=== PATIENT | female | born 1930 | race Caucasian/White ===

== ENCOUNTER → 2021-07-16 | Outpatient (CLI) | payer OTHER ==
[~2021-07-16] MED LIST: ALEVE220 M1 PO; ASPIRIN EC81 M1 PO; CIPRO250 M1 PO; ELIQUIS5 MG PO; HYDROCHLOROTHIA25 M1 PO; IMDUR 60 MG TAB60 M1 PO; INDERAL LA PO; ISORDIL 5MG TABL5 MG PO; KLOR-CON 1010 MEQ PO; KLOR-CON M2020 MEQ PO; LIDOCAINE5 GM TOP; LIPITOR 20 MG T20 M1 PO; LIPITOR40 MG PO; NITROGLYCERIN0.4 MG SUBLING; PLAVIX 75 MG TA75 M1 PO; POTASSIUM CHLORIDE PO; PROPRANOLOL 20M20 M1 PO; PROPRANOLOL 4040 M1 PO; SYSTANE 0.3-0.1 EACH OPHTHALMIC; VITAMIN D350000 UNIT PO
== END ==
LOC: SJCVCIMAG 07:37
PROVIDERS: ATTEND Internal Medicine
DX: I08.3 Combined rheumatic disorders of mitral, aortic and tricuspid valves (principal); E78.5 Hyperlipidemia, unspecified; I25.10 Atherosclerotic heart disease of native coronary artery without angina pectoris; I48.0 Paroxysmal atrial fibrillation; I27.20 Pulmonary hypertension, unspecified; I49.5 Sick sinus syndrome; I11.0 Hypertensive heart disease with heart failure; I50.32 Chronic diastolic (congestive) heart failure; I44.30 Unspecified atrioventricular block; Z95.0 Presence of cardiac pacemaker; Z95.5 Presence of coronary angioplasty implant and graft; Z79.899 Other long term (current) drug therapy; Z86.73 Personal history of transient ischemic attack (TIA), and cerebral infarction without residual deficits; Z88.0 Allergy status to penicillin; Z88.5 Allergy status to narcotic agent; Z88.8 Allergy status to other drugs, medicaments and biological substances; Z82.49 Family history of ischemic heart disease and other diseases of the circulatory system

== ENCOUNTER → 2021-07-23 | Outpatient (CLI) | payer OTHER ==
[~2021-07-23] VITALS: Ht 157.5 cm; Wt 62.6 kg
[2021-07-23 09:18] VITALS: BP 138/76
[2021-07-23 09:40] LABS: ABSOLUTE NEUTROPHILS 3.7 thou/uL (1.4-8.2); BASOPHILS 0.7 % (0.0-2.0); EOSINOPHILS 2.5 % (0.0-3.0); HEMATOCRIT 31.3 % (37.0-47.0); HEMOGLOBIN 10.4 gm/dL (12.0-15.0); LYMPHOCYTES 20.8 % (24.0-44.0); MCHC 33.3 g/dL (28.0-37.0); MCV 99.3 fL (80.0-100.0); MONOCYTES 8.6 % (1.0-8.0); PLATELET COUNT 183 thou/uL (150-400); POLYS 67.4 % (36.0-66.0); RBC 3.15 mil/uL (4.20-5.00); RDW 16.8 % (10.5-14.5); WBC 5.5 thou/uL (4.0-11.0)
[2021-07-23 09:48] LABS: CALCIUM 8.9 mg/dL (8.5-10.1); POTASSIUM 4.1 mmol/L (3.5-5.1)
--- NOTE | 2021-08-04 16:56 | CATHLAB ---
[facility] [address] [place] [address] INVASIVE PROCEDURE REPORT Name: EMORYANGELO EDILMA Room #: REG LIZABETH Gray#: [id number] Admission: 07/23/21 Attend Phys: Carmelo Alex Discharge: Date of : [birth year] Report #: [id number] THIS REPORT FOR: cc: Tim Burnett Kent DO Lammoglia, Francisco J. MD ~ APPROVED REPORT Study performed: 07/23/2021 11:29:27 Patient Status: Out-Patient Room #: Event Personnel: Carmelo Alex MD Exam: Generator Change for a Dual Chamber Permanent Pacemaker Indications: Normal Battery Depletion The patient is a 89 year-old female with a history of Sick sinus syndrome, tachybradycardia. Implanted Devices: [employer]: ACCOLADE MRI ALBIN RIVAS Pacemaker: Model #: L331; Serial #: [id number]; Use by: 2023-06-16 Explanted Devices: [employer]: Model #: [id number]; Serial #: [id number] Procedure The patient underwent informed consent. We discussed the details of the procedure including the risks, which include, but not limited to bleeding, infection, vascular damage, cardiac perforation, and pneumothorax. She understood these risks and was willing to proceed. As such, she was brought to the EP/Cardiac Catheterization laboratory in a fasting and sedated state and prepped and draped in a The patient underwent local anesthesia, with no anesthesia related complications. The patient was brought to the EP/Cardiac Catheterization laboratory and the left chest and shoulder were prepped and draped in a sterile manner. The left subclavian region was infiltrated with 2% Lidocaine subcutaneous anesthesia. A transverse incision was made in the left upper chest cavity. Electrode Parameters P Wave: 0.5mV R Wave: Paced Atrial Threshold: Afib Ventricular Threshold: 0.7V @ 0.4ms [facility] [place] [address] [place] [address] INVASIVE PROCEDURE REPORT Name: ANEGLO CAT Room #: [facility] [id number] Admission: 07/23/21 Attend Phys: Carmelo Dalton Discharge: Date of : [birth year] Report #: [id number] Atrial Resistance: 600 ohm Ventricular Resistance: 583 ohm Current: 1.3mA Generator Change The generator change was then secured using 3.0 Vicryl sutures. The subcutaneous pocket was irrigated with vancomycin antibiotic solution.The lead was attached to the appropriate receptacle on the new pulse generator and setscrews firmly tightened to insure adequate contact and stability. Complications The patient tolerated the procedure well and there were no complications associated with the procedure. Findings Estimated Blood Loss: 0 cc Conclusion 1. Successful dual-chamber pacemaker generator change Recommendations 1. Routine post generator change protocol <ELECTRONICALLY SIGNED> By: Carmelo Alex MD 08/04/21 [id number] Carmelo Alex MD /INF
== END | disposition home or self-care (01) ==
LOC: CATH 07:09
PROVIDERS: ATTEND Internal Medicine
DX: Z45.010 Encounter for checking and testing of cardiac pacemaker pulse generator [battery] (principal); I49.5 Sick sinus syndrome; I11.0 Hypertensive heart disease with heart failure; I50.30 Unspecified diastolic (congestive) heart failure; I25.10 Atherosclerotic heart disease of native coronary artery without angina pectoris; E78.5 Hyperlipidemia, unspecified; I48.91 Unspecified atrial fibrillation; Z98.890 Other specified postprocedural states; Z79.899 Other long term (current) drug therapy; Z86.73 Personal history of transient ischemic attack (TIA), and cerebral infarction without residual deficits; Z90.710 Acquired absence of both cervix and uterus; Z79.01 Long term (current) use of anticoagulants; Z87.891 Personal history of nicotine dependence; Z82.49 Family history of ischemic heart disease and other diseases of the circulatory system; Z88.0 Allergy status to penicillin; Z88.8 Allergy status to other drugs, medicaments and biological substances